=== PATIENT | female | born 1960 | race Caucasian/White ===

== ENCOUNTER 2020-12-10 14:30 | Outpatient (CLI) | payer BC, SELFPAY ==
--- NOTE | ~2020-12-10 | MM_ITS ---
EXAMINATION: MM screening deuce BI w adi HISTORY: Screening TECHNIQUE: Craniocaudal and mediolateral oblique 3-D tomosynthesis images were obtained and synthetic 2-D images were generated. CAD analysis was submitted and interpreted. COMPARISON: Comparison to multiple prior studies sequentially, with oldest reviewed study dated 10/12. BREAST PARENCHYMAL COMPOSITION: There are scattered areas of fibroglandular density. FINDINGS: Breast asymmetries are stable. There is no evidence of suspicious mass, calcification, or a rchitectural distortion to suggest malignancy in either breast. There has been no suspicious interval change. IMPRESSION: 1. No mammographic evidence of malignancy. 2. Recommend routine screening mammography in one year. BI-RADS Category 1: Negative Reviewed, dictated and finalized at location A. [employer] PAR[employer] PROFESSIONAL
== END 2020-12-10 14:31 | disposition home or self-care (01) ==
PROVIDERS: PCP Physician Assistant; Visit Provider Nurse Practitioner
DX: Z12.31 Encounter for screening mammogram for malignant neoplasm of breast (principal)
CPT/HCPCS: 77063; 77067

== ENCOUNTER 2021-12-12 08:18 | Outpatient (CLI) | payer BC, SELFPAY ==
--- NOTE | ~2021-12-12 | MM_ITS ---
EXAMINATION: MM screening deuce BI w adi HISTORY: Screening TECHNIQUE: Craniocaudal and mediolateral oblique 3-D tomosynthesis images were obtained and synthetic 2-D images were generated. CAD analysis was submitted and interpreted. COMPARISON: Comparison to multiple prior studies sequentially, with oldest reviewed study dated 10/12. BREAST PARENCHYMAL COMPOSITION: The breasts are heterogenously dense, which may obscure small masses FINDINGS: There is no evidence of suspicious mass, calcification, or architectural distortion to sugg est malignancy in either breast. There has been no suspicious interval change. IMPRESSION: 1. No mammographic evidence of malignancy. 2. Recommend routine screening mammography in one year. BI-RADS Category 1: Negative Reviewed, dictated and finalized at location A. [employer] QUALITY CONTROL MANAGER
== END 2021-12-12 08:19 | disposition home or self-care (01) ==
LOC: ANHIMG 08:20
PROVIDERS: Visit Provider Nurse Practitioner
DX: Z12.31 Encounter for screening mammogram for malignant neoplasm of breast (principal)
CPT/HCPCS: 77063; 77067

== ENCOUNTER 2022-04-20 12:53 | Outpatient (CLI) | payer BC, SELFPAY ==
--- NOTE | ~2022-04-20 | DEXA_ITS ---
Bone Density Report Name: SRIKANTH PRADO Age: 61 Sex: Female Ethnicity: White Date of : 1960 Indication: osteopenia; height loss; postmenopausal Referring Provider: RANDA, JOSÉ Study: Bone densitometry was performed. Exam Date: April 20, 2022 Accession number: [id number] Bone Density: Region BMD T-score Z-score Classification AP Spine(L1-L4) 0.752 -2.7 -1.2 Osteoporosis Femoral Neck (Left) 0.638 -1.9 -0.6 Osteopenia Total Hip (Left) 0.755 -1.5 -0.6 Osteopenia Femoral Neck (Right) 0.684 -1.5 -0.2 Osteopenia Total Hip (Right) 0.757 -1.5 -0.5 Osteopenia Total Hip Mean 0.756 -1.5 -0.6 Osteopenia World Health Organization criteria for BMD impression classify patients as: Normal (T-score at or above -1.0), Osteopenia (T-score between -1.0 and -2.5), or Osteoporosis (T-score at or below -2.5). 10-year Fracture Risk: FRAX not reported because: Some T-score for Spine Total or Hip Total or Femoral Neck at or below -2.5 Previous Exams: Region Exam Age BMD T-score BMD Change BMD Change Date g/cm2 vs Baseline vs Previous AP Spine (L1-L4) 04/20/2022 61 0.752 -2.7 -0.166 (-18.1% -0.085 (-10.2% 11/25/2018 58 0.837 -1.9 -0.080 (-8.8%) -0.080 (-8.8%) 10/28/2016 56 0.917 -1.2 Total Hip(Left) 04/20/2022 61 0.755 -1.5 -0.078 (-9.4%) -0.143 (-15.9% 11/25/2018 58 0.897 -0.4 0.064 (7.7%)* 0.064 (7.7%)* 10/28/2016 56 0.833 -0.9 Total Hip(Right) 04/20/2022 61 0.757 -1.5 -0.098 (-11.5% -0.127 (-14.3% 11/25/2018 58 0.884 -0.5 0.028 (3.3%)* 0.028 (3.3%)* 10/28/2016 56 0.855 -0.7 *Denotes significance at 95% confidence level, LSC for AP Spine = 0.022 g/cm2, LSC for Total Hip = 0.027 g/cm2 Clinical Information Provided by Patient: Has used the following medications: Vitamin D Patient maximum height was 62 Menopause Age: 54 Drinks caffeinated beverages Onset of menses at age 14 Number of children 2 Impression: The patient has osteoporosis, based on the Total Spine T-score. The BMD for the AP Spine (L1-L4) decreased, changing by -10.2% since the last DXA exam. The BMD for the Total Hip(Left) decreased, changing by -15.9% since the last DXA exam. The BMD for the Total Hip(Right) decreased, changing by -14.3% since the last DXA exam. Discussion: INCREASED RISK OF FRACTURE. BONE DENSITY IS UNDESIRABLY LOW AT ONE OR MORE SKELETAL SITES, CONSISTENT WITH POSTMENOPAUSAL OSTEOPOROSIS. This patient's
== END 2022-04-20 12:54 | disposition home or self-care (01) ==
PROVIDERS: PCP Nurse Practitioner Family; Visit Provider Nurse Practitioner
DX: Z13.820 Encounter for screening for osteoporosis (principal); M81.0 Age-related osteoporosis without current pathological fracture; M85.852 Other specified disorders of bone density and structure, left thigh; M85.851 Other specified disorders of bone density and structure, right thigh
CPT/HCPCS: 77080

== ENCOUNTER 2023-01-10 15:43 | Outpatient (CLI) | payer BC, SELFPAY ==
--- NOTE | ~2023-01-10 | MM_ITS ---
EXAMINATION: MM screening deuce BI w adi HISTORY: Screening mammogram TECHNIQUE: Craniocaudal and mediolateral oblique 3-D tomosynthesis images were obtained and synthetic 2-D images were generated. CAD analysis was submitted and interpreted. COMPARISON: 12/12/2021, 12/10/2020, 12/08/2019 bilateral screening mammogram examinations BREAST PARENCHYMAL COMPOSITION: The breasts are heterogeneously dense, which may obscure small masses . FINDINGS: History of prior benign right breast biopsy. Stable bilateral mammographic asymmetry since 12/08/2019 There is no evidence of suspicious mass, calcification, or architectural distortion to sugg est malignancy in either breast. There has been no suspicious interval change. IMPRESSION: 1. No mammographic evidence of malignancy. 2. Recommend routine screening mammography in one year. BI-RADS Category 2: Benign finding(s). Reviewed, dictated and finalized at location A. KET NURSE
== END 2023-01-10 15:44 | disposition home or self-care (01) ==
LOC: ANHIMG 15:44
PROVIDERS: PCP Nurse Practitioner Family; Visit Provider Nurse Practitioner
DX: Z12.31 Encounter for screening mammogram for malignant neoplasm of breast (principal)
CPT/HCPCS: 77063; 77067

== ENCOUNTER 2024-03-04 11:57 | Outpatient (CLI) | payer BC, SELFPAY ==
--- NOTE | ~2024-03-04 | XR_ITS ---
Supine and upright views of the abdomen Clinical history: Kidney stone Findings: Bowel gas pattern is nonspecific. No evidence for obstruction or free air. There is a large staghorn type calculus of the right kidney. There are probable multiple much smaller right lower regina e renal stones. No definite left renal stone seen.. Osseous structures are intact. Impression: Staghorn right renal calculus with multiple small right lower pole renal stones. Reviewed, dictated and finalized at location . Impression: Staghorn right renal calculus with multiple small right lower pole renal stones .
== END 2024-03-04 11:58 | disposition home or self-care (01) ==
PROVIDERS: PCP Nurse Practitioner Family; Visit Provider Nurse Practitioner Family
DX: N20.0 Calculus of kidney (principal); Z87.442 Personal history of urinary calculi
CPT/HCPCS: 74018

== ENCOUNTER 2024-03-17 09:46 | Outpatient (CLI) | payer BC, SELFPAY ==
--- NOTE | ~2024-03-17 | MM_ITS ---
EXAMINATION: MM screening deuce BI w adi HISTORY: Screening mammogram TECHNIQUE: Craniocaudal and mediolateral oblique 3-D tomosynthesis images were obtained and synthetic 2-D images were generated. CAD analysis was submitted and interpreted. COMPARISON: 01/10/2023, 12/12/2021 bilateral screening mammogram examinations BREAST PARENCHYMAL COMPOSITION: There are scattered areas of fibroglandular density. FINDINGS: There is no evidence of suspicious mass, calcification, or architectural distortion to sugg est malignancy in either breast. There has been no suspicious interval change. IMPRESSION: 1. No mammographic evidence of malignancy. 2. Recommend routine screening mammography in one year. BI-RADS Category 1: Negative Reviewed, dictated and finalized at location B.
== END 2024-03-17 09:47 | disposition home or self-care (01) ==
LOC: ANHIMG 09:49
PROVIDERS: PCP Nurse Practitioner Family; Visit Provider Nurse Practitioner
DX: Z12.31 Encounter for screening mammogram for malignant neoplasm of breast (principal)
CPT/HCPCS: 77063; 77067

== ENCOUNTER 2024-05-30 09:13 | Outpatient (CLI) | payer BC, SELFPAY ==
--- NOTE | ~2024-05-30 | DEXA_ITS ---
Bone Density Report Name: SRIKANTH PRADO Age: 63 Sex: Female Ethnicity: White Date of : 1960 Indication: postmenopausal; screening for osteoporosis; height loss; Referring Provider: RANDA, JOSÉ Study: Bone densitometry was performed. Exam Date: May 30, 2024 Accession number: [id number] Bone Density: Region BMD T-score Z-score Classification AP Spine(L1-L4) 0.782 -2.4 -0.8 Osteopenia Femoral Neck (Left) 0.673 -1.6 -0.2 Osteopenia Total Hip (Left) 0.794 -1.2 -0.1 Osteopenia Femoral Neck (Right) 0.663 -1.7 -0.3 Osteopenia Total Hip (Right) 0.790 -1.2 -0.2 Osteopenia Total Hip Mean 0.792 -1.2 -0.2 Osteopenia World Health Organization criteria for BMD impression classify patients as: Normal (T-score at or above -1.0), Osteopenia (T-score between -1.0 and -2.5), or Osteoporosis (T-score at or below -2.5). 10-year Fracture Risk: FRAX not reported because: Treated for osteoporosis Clinical Information Provided by Patient: Is being treated for osteoporosis Has used the following medications: Boniva (i.e. ibandronate) Patient maximum height was 62 Menopause Age: 54 Drinks caffeinated beverages Onset of menses at age 13 Number of children 2 Impression: The patient has low bone mass, based on the Total Spine T-score. Discussion: It is important to ask patients whether they are taking their medications and to encourage continued and appropriate compliance with their osteoporosis therapies to reduce fracture risk. It is also important to review their risk factors and encourage appropriate calcium and vitamin D intakes, exercise, fall prevention and other lifestyle measures. Follow-Up: Consider a repeat BMD and Vertebral Fracture Assessment (VFA) exam in 2 years or sooner if medically necessary, to reassess this patient's status. Reported by: STEPHEN on 05/30/2024 9:43:00 AM. Reviewed, dictated and finalized at location [facility] [place]
== END 2024-05-30 09:14 | disposition home or self-care (01) ==
LOC: ANHIMG 09:14
PROVIDERS: PCP Nurse Practitioner Family; Visit Provider Nurse Practitioner
DX: M81.0 Age-related osteoporosis without current pathological fracture (principal); M85.89 Other specified disorders of bone density and structure, multiple sites
CPT/HCPCS: 77080

== ENCOUNTER 2025-02-19 15:23 | Emergency (ER) | payer BC, SELFPAY ==
--- NOTE | 2025-02-19 15:24 | ED.FEMALEGU ---
HPI - Female Genitourinary General Chief complaint: Upper Respiratory Infection Stated complaint: nauseated,urine ordor Time Seen by Provider: 02/19/25 15:24 Source: patient Mode of arrival: ambulatory Limitations: no limitations History of Present Illness HPI Narrative: Luciana is a 64-year-old female patient presenting to the clinic today with complaints of nausea, runny nose, and a foul urine smell. States the runny nose started on Sunday and she has become more and more nauseated. Denies any abdominal pain. Denies any urinary symptoms however she does get urinary tract infections frequently. She denies any concern for any sexually transmitted infections and she denies any other urinary symptoms. Denies any fever, chills, or body aches. Denies any chest pain or shortness of breath Related Data Allergies Allergy/AdvReac Type Severity Reaction Status Date / Time Sulfa (Sulfonamide Allergy Unknown unknown Verified 02/19/25 15:41 Antibiotics) Review of Systems Review of Systems: Pertinent positives per HPI. Patient denies any fever, chills, rash, headache, visual changes, dizziness, cough, shortness of breath, chest pain, palpitations, vomiting, diarrhea, constipation, abdominal pain PMFSH Past Medical History Medical History Allergies Family History Family History Father Lung cancer Mother Lung cancer Social History Social History Smoking status: Never smoker Alcohol intake: never Substance use: never Comments At the time of my signature, I reviewed and agree with the nursing past medical, surgical, social, and family history. There is no relevant family history pertinent to the patient complaint. Exam Narrative: General: Well-developed, well nourished, in no apparent distress Head: Normocephalic, atraumatic Eyes: Pupils equally round and reactive to light bilaterally, EOM intact, sclera and conjunctive clear, no discharge, lids normal Ears: TMs intact and clear, ear canals clear, no drainage, grossly hearing normal. Nose: Nares patent, clear nasal discharge, no inflammation, no sinus tenderness. Mouth: Oral pharynx without lesions or masses, good dentition, MMM. Postnasal drip Neck: Supple, trachea midline, no enlargement of anterior or posterior cervical nodes, no thyroid masses or goiter palpable. Cardio: Regular rate and rhythm, s1 and s2 normal, no murmur appreciated. Resp: Clear to auscultation bilaterally, no rhonchi, rales, wheezing or rubs Abdomen: Soft, pliable, bowel sounds present in all quadrants, non-tender to palpation, no organomegly, no CVAT tenderness. Course Course Emergency Course: Portions of this record may have been created with voice recognition software. Level of Care: Express Care Visit Vital Signs Vital signs: Vital Signs Temperature 36.8 C 02/19/25 15:42 Pulse Rate 91 02/19/25 15:42 Respiratory Rate 16 02/19/25 15:42 Blood Pressure 127/80 02/19/25 15:42 Pulse Oximetry 100 02/19/25 15:42 Oxygen Delivery Room Air 02/19/25 15:42 Temperature 36.8 C 02/19/25 15:42 Pulse Rate 91 02/19/25 15:42 Respiratory Rate 16 02/19/25 15:42 Blood Pressure 127/80 02/19/25 15:42 Pulse Oximetry 100 02/19/25 15:42 Oxygen Delivery Room Air 02/19/25 15:42 Vital signs reviewed MDM - Female Genitourinary MDM Narrative Medical decision making narrative: At the time of visit patient is resting comfortably on the exam table. Patient appears to be nontoxic. Labs: COVID testing was negative. Urine dip was performed is positive for leukocytes, nitrites, blood, and protein. We will send urine for culture Plan: I suspect patient has acute UTI with associated nausea. Prescription for Zofran and Augmentin was sent to the pharmacy. Supportive measures were discussed with the patient and they voiced understanding discharge instructions and agrees to treatment plan. Return precautions reviewed Differential Diagnosis Differential diagnosis: Likely urinary tract infection and cystitis Lab Data Labs: Lab Results 02/19/25 02/19/25 Range/Units 15:57 16:02 POC Urine Color Yellow POC Urine Clarity Cloudy POC Urine pH 7.5 POC Ur Specif [place] 1.000 POC Urine Protein 4+ (Negative) POC Ur Glucose (UA) Negative (Negative) POC Urine Ketones Negative (Negative) POC Urine Blood Trace (Negative) POC Urine Nitrite Positive (Negative) POC Urine Bilirubin 2+ (Negative) POC Urine Urobilinogen 0.2 POC U Leukocyte Esteras 2+ (Negative) POC SARS CoV-2 Ag Negative (Negative) Discharge Plan Discharge Clinical Impression: Nausea Allergic rhinitis Qualifiers: Allergic rhinitis trigger: unspecified Allergic rhinitis seasonality: unspecified Qualified Code(s): J30.9 - Allergic rhinitis, unspecified Urinary tract infection Qualifiers: Urinary tract infection type: acute cystitis Hematuria presence: with hematuria Qualified Code(s): N30.01 - Acute cystitis with hematuria Patient Disposition: Home Condition: Stable Instructions: Antibiotic Form, Urinary Tract Infection in Women (ED), Allergies (ED) Additional Instructions: Take medications as prescribed-Zofran and Augmentin May take Flonase and [id number] antihistamines for nasal congestion Increase fluids and stay well hydrated Wipe front to back. May use wet wipes. Avoid tub baths If sexually active- pee before and after intercourse. Wear cotton panties Avoid tight clothing up against the genitals Follow up with your PCP in 1 week if symptoms persist. Patient Language: Guyanese Prescriptions: New ondansetron 4 mg tablet,disintegrating 4 mg PO Q6H PRN (Reason: nausea and vomiting) 3 Days Qty: 12 0RF amoxicillin-pot clavulanate 875-125 mg tablet 1 tablet PO Q12H 7 Days Qty: 14 0RF Follow-up/Referrals: Bita,Donna Smith CORKING MACHINE OPERATOR [Primary Care Provider] - Time of Disposition: 16:03 Quality NIHSS Nursing Documentation ED NIHSS nursing documentation: reviewed/agree
[2025-02-19 15:42] VITALS: BP 127/80; PULSE 91; RESP 16; TEMP 36.8; O2SAT 100
[2025-02-19 16:00] LABS: EDCOVIDSCREEN Negative (Negative)
[2025-02-19 16:06] LABS: EDUAAPPEAR Cloudy; EDUABILI 2+ (Negative); EDUABLOOD Trace (Negative); EDUACOLOR1 Yellow; EDUAGLUCOSE Negative (Negative); EDUAKETONE Negative (Negative); EDUALEUKO 2+ (Negative); EDUANITRATE Positive (Negative); EDUAPH 7.5; EDUAPROTEIN 4+ (Negative); EDUAUROBILI 0.2
== END 2025-02-19 16:10 | disposition home or self-care (01) ==
PROVIDERS: Emergency Provider Nurse Practitioner Family; PCP Nurse Practitioner Family
DX: R11.0 Nausea (principal); J06.9 Acute upper respiratory infection, unspecified; N30.01 Acute cystitis with hematuria; Z20.822 Contact with and (suspected) exposure to COVID-19
CPT/HCPCS: 81003; 87086; 87426; 99213; G0463

== ENCOUNTER 2025-03-20 08:44 | Outpatient (CLI) | payer BC, SELFPAY ==
--- NOTE | ~2025-03-20 | MM_ITS ---
EXAMINATION: MM screening deuce BI w adi HISTORY: Screening TECHNIQUE: Craniocaudal and mediolateral oblique 3-D tomosynthesis images were obtained and synthetic 2-D images were generated. CAD analysis was submitted and interpreted. COMPARISON: Comparison to multiple prior studies sequentially, with oldest reviewed study dated 12/08. BREAST PARENCHYMAL COMPOSITION: Not dense: There are scattered areas of fibroglandular density. FINDINGS: There is no evidence of suspicious mass, calcification, or architectural distortion to sugg est malignancy in either breast. There has been no suspicious interval change. IMPRESSION: 1. No mammographic evidence of malignancy. 2. Recommend routine screening mammography in one year. BI-RADS Category 1: Negative Reviewed, dictated and finalized at location A.
--- OUTSIDE RECORDS SUMMARY | 2025-03-20 08:50 | XMS_ITS | Data Portability ---
Author Organization [facility] [place], Main Office Address [address] [place] [address] Assessment No assessment recorded. Plan of Treatment Reminders Order Date Submit Date Provider Last Modified By Organization Details Last Modified Time Details Appointments None recorded. Lab urinalysis, dipstick 2024 025 [facility] [address], [place], [address], 11:22:33 CBC w/ auto diff 2024 025 [facility] On [facility] Orders, [address] [place], [address], 5 17:42:58 lipid panel, serum 2024 025 [facility] Orders, [address] [place], [address], 5 17:42:58 vitamin D, 1,25-dihydr oxy, serum 2024 025 [facility] On [facility] Orders, [address] [place], [address], 5 17:42:58 TSH + free T4, serum 2024 025 [facility] Add On Lab Orders, [address] [place], [address], 5 08:45:46 HbA1c (hemoglobin A1c), blood 2024 025 [facility] Add On Lab Orders, [address] [place], [address], 5 08:45:47 CMP, serum or plasma 2024 025 [facility] On Lab Orders, [address] [place], [address], 5 08:45:47 CBC 2023 024 [email or web address] 4 [facility], [address] [place], [address], 4 13:29:50 BMP, serum or plasma 2023 024 [email or web address] 4 [facility], [address] [place], [address], 4 13:30:07 HbA1c (hemoglobin A1c), blood 2023 024 [email or web address] 4 [facility], [address] [place], [address], 4 13:29:30 Referral gastroenter ologist referral - pt prefers to stay local. Please call patient to schedule an appointment . Thank you. 2023 024 [email or web address] Ailyn Leiva MD, [address] [facility], [address], [place], [address], 4 08:45:23 urologist referral - Please call patient to schedule an appointment . 2023 024 [email or web address] Not available 09:10:05 Procedures None recorded. Surgeries None recorded. Imaging electromyog james + nerve conduction study - Close order 2023 [email or web address] [place] [address] (Cardiology & Emg), [address] [place] [address] [address], [address], 4 09:09:33 Medication Orders diclofenac sodium 75 mg tablet,rosa yed release 2023 024 [email or web address] [place] [address], [address], [place], [address], 10:12:29 Sudafed 30 mg tablet 2023 024 [email or web address] [place] [address], [address], [place], [address], 5 10:13:44 Patient TargetsNo targets recorded. Patient InstructionsNo instructions recorded. Reason for Referral Urologist Referral for Recur rent kidney stone Please call patient to schedule an appointment. Referring Physician: Ty Del Toro [facility], Encounter Date: 01/16/2024 [employer] C[employer]rer Referral for Gastroesophageal reflux disease EGD, GERD treatment pt prefers to stay local. Please call patient to schedule an appointment. Thank you. Referring Physician: Ty Del Toro [facility], Encounter Date: 07/29/2024 Results Created Date Observation Date Name Description Value Unit Range Abnormal Flag Note LastModifiedBy Organization Detail LastModifiedTime 03/07/2003/08/2022 HEMOG LOBIN A1C HA1C 5.6 % 4.0-6. 0 Diabe prince Scree mushtaq Crite mary: <5.7% Consi stent with absen ce of diabe prince 5.7-6 .4% Consi stent with incre ased risk for diabe prince (pred iabet es) >OR=6 .5% Consi stent with diabe prince REFER ENCE: Diabe prince Care 2016, 39(Lara ppl.1 ):s13 -s22 Not Available [facility] (Lab) [address] [place], [address], 03/08/2022 12:00:13 03/07/20 22 03/07/2022 FOLAT E, SERUM /PLAS MA folate 14.2 NG/mL 2.76-2 0.0 Not Available [facility] (Lab) [address] [place], [address], 03/08/2022 00:10:32 03/07/20 22 03/07/2022 VITAM IN B12 (DEREK DANETTE ) vb12 420 pg/mL 239-93 1 Not Available [facility] (Lab) [address] [place], [address], 03/08/2022 00:10:30 03/07/20 22 03/07/2022 VITAM IN D 25-HY DROXY vd25oh 25.8 NG/mL 30-100 low Vitam in D Statu s: Defic ient: <20 ng/mL Insuf ficie nt: 20-29 ng/mL Suffi cient : 30-10 0 ng/mL Not Available [facility] (Lab) [address] [place], [address], 03/07/2022 23:23:53 03/07/20 22 03/07/2022 TSH thyroid-stim ulating hormone 1.110 uIU/m L 0.465- 4.680 Not Available [facility] (Lab) [address] [place], [address], 03/07/2022 22:15:28 03/07/20 22 03/07/2022 COMPR EHENS EDWIN METAB OLIC PANEL carbon dioxide 26 mmol/ L 22-30 Not Available [facility] (Lab) [address] [place], [address], 03/07/2022 21:46:58 03/07/20 22 03/07/2022 COMPR EHENS EDWIN METAB OLIC PANEL sodium 137 mmol/ L 137-14 5 Not Available [facility] (Lab) [address] [place], [address], 03/07/2022 21:46:58 03/07/20 22 03/07/2022 COMPR EHENS EDWIN METAB OLIC PANEL potassium 4.6 mmol/ L 3.5-5. 1 Not Available [facility] (Lab) [address] [place], [address], 03/07/2022 21:46:58 03/07/20 22 03/07/2022 COMPR EHENS EDWIN METAB OLIC PANEL chloride 104 mmol/ L 98-107 Not Available [facility] (Lab) [address] [place], [address], 03/07/2022 21:46:58 03/07/20 22 03/07/2022 COMPR EHENS EDWIN METAB OLIC PANEL anion gap 11.6 mmol/ L 14-22 low Not Available [facility] (Lab) [address] [place], [address], 03/07/2022 21:46:58 03/07/20 22 03/07/2022 COMPR EHENS EDWIN METAB OLIC PANEL glucose 82 mg/dL 70-99 Not Available [facility] (Lab) [address] [place], [address], 03/07/2022 21:46:58 03/07/20 22 03/07/2022 COMPR EHENS EDWIN METAB OLIC PANEL BUN 16 mg/dL 8-19 Not Available [facility] (Lab) [address] [place], [address], 03/07/2022 21:46:58 03/07/20 22 03/07/2022 COMPR EHENS EDWIN METAB OLIC PANEL creatinine 0.66 mg/dL 0.66-1 .25 Not Available [facility] (Lab) [address] [place], [address], 03/07/2022 21:46:58 03/07/20 22 03/07/2022 COMPR EHENS EDWIN METAB OLIC PANEL aspartate aminotransfe rase 22 U/L 15-37 Not Available [facility] (Lab) [address] [place], [address], 03/07/2022 21:46:58 03/07/20 22 03/07/2022 COMPR EHENS EDWIN METAB OLIC PANEL GFR >60 Refer ence Range : [place] ge GFR Healt hy Adult : >60 mL/mi n/1.7 3 m2 Chron ic Kidne y Disea se: 15-60 mL/mi n/1.7 3 m2 Kidne y Failu re: <15/m L/min /1.73 m2 www.n iddk. nih.g ov The MDRD study equat ion has not been valid ated in child donnie <18 years of age; pregn ant women ; the elder ly >85 years of age; or in some racia l or ethni c subgr oups, such as Hispa nics. Outsi de the valid ated benja eters , estim ated GFR is less accur ate, requi ring clini jennifer judgm ent on a case- by-ca se basis . Clini jennifer inter preta tion for other races and ages must be made by the clini afshin. The MDRD study equat ion has not been valid ated for the evalu ation of serum creat inine relat ed to nutri nelly l statu s or medic ation usage . For perso ns <18 years of age, a pedia tric GFR calcu lator is avail able on the [facility] websi te: https ://cezar w.kid ash.o rg/pr ofess ional s/kdo qi/gf r_cal culat or Not Available [facility] (Lab) [address] [place], [address], 03/07/2022 21:46:58 03/07/20 22 03/07/2022 COMPR EHENS EDWIN METAB OLIC PANEL alkaline phosphatase 110 U/L 38-126 Not Available [facility] (Lab) [address] [place], [address], 03/07/2022 21:46:58 03/07/20 22 03/07/2022 COMPR EHENS EDWIN METAB OLIC PANEL alanine aminotransfe rase 13 U/L 0-35 Not Available [facility] (Lab) [address] [place], [address], 03/07/2022 21:46:58 03/07/20 22 03/07/2022 COMPR EHENS EDWIN METAB OLIC PANEL bilirubin, total 0.30 mg/dL 0.20-1 .30 Not Available [facility] (Lab) [address] [place], [address], 03/07/2022 21:46:58 03/07/20 22 03/07/2022 COMPR EHENS EDWIN METAB OLIC PANEL calcium 9.4 mg/dL 8.4-10 .2 Not Available [facility] (Lab) [address] [place], [address], 03/07/2022 21:46:58 03/07/20 22 03/07/2022 COMPR EHENS EDWIN METAB OLIC PANEL total protein 8.1 g/dL 6.3-8. 2 Not Available [facility] (Lab) [address] [place], [address], 03/07/2022 21:46:58 03/07/20 22 03/07/2022 COMPR EHENS EDWIN METAB OLIC PANEL albumin 4.1 g/dL 3.4-5. 0 Not Available [facility] (Lab) [address] [place], [address], 03/07/2022 21:46:58 03/07/20 22 03/07/2022 COMPR EHENS EDWIN METAB OLIC PANEL globulin 4.0 g/dL 2.6-4. 2 Not Available [facility] (Lab) [address] [place], [address], 03/07/2022 21:46:58 03/07/20 22 03/07/2022 COMPR EHENS EDWIN METAB OLIC PANEL A/G ratio 1.0 ratio 1.0-2. 0 Not Available [facility] (Lab) [address] [place], [address], 03/07/2022 21:46:58 03/07/20 22 03/07/2022 LIPID PANEL LDL cholesterol, calculated 128 mg/dL 0-130 NIH JEWEL NSUS REPOR T RECOM MENDA TIONS FOR LDL: ADULT CHILD LOW RISK <130 <110 (OPTI MAL LDL) <100 ----- BORDE RLINE : 130-1 59 ----- HIGH RISK: >160 >130 A TRIGL YCERI DE RESUL T >400 INVAL IDATE S THE CALCU LATIO N FOR LDL FRACT IONAT ION - THE LDL RESUL T WILL NOT BE REPOR TASNEEM. Not Available [facility] (Lab) [address] [place], [address], 03/07/2022 21:46:46 03/07/20 22 03/07/2022 LIPID PANEL cholesterol 211 mg/dL 140-19 9 high NIH JEWEL NSUS RECOM MENDA TION FOR LINNEA STERO L: ADULT CHILD LOW RISK: <200 <170 BORDE RLINE : <200- 239 ----- HIGH RISK: >240 >200 Not Available [facility] (Lab) [address] [place], [address], 03/07/2022 21:46:46 03/07/20 22 03/07/2022 LIPID PANEL triglyceride s 139 mg/dL 0-150 NIH JEWEL NSUS REPOR T RECOM MENDA TION FOR TRIGL YCERI ANGELICA: ADULT CHILD LOW RISK: <150 ----- BODER LINE: 150-1 99 ----- HIGH RISK: >200 ----- Not Available [facility] (Lab) [address] [place], [address], 03/07/2022 21:46:46 03/07/20 22 03/07/2022 LIPID PANEL HDL cholesterol 55 mg/dL 40- Not Available [facility] (Lab) [address] [place], [address], 03/07/2022 21:46:46 03/07/20 22 03/07/2022 URINA LYSIS COMPL ETE, IRIS pH 6.5 pH_un its 5.0-9. 0 Not Available [facility] (Lab) [address] [place], [address], 03/07/2022 21:39:02 03/07/20 22 03/07/2022 URINA LYSIS COMPL ETE, IRIS color yellow Not Available [facility] (Lab) [address] [place], [address], 03/07/2022 21:39:02 03/07/20 22 03/07/2022 URINA LYSIS COMPL ETE, IRIS appear extra turbid abnormal Not Available [facility] (Lab) [address] [facility] [place], [address], 03/07/2022 21:39:02 03/07/20 22 03/07/2022 URINA LYSIS COMPL ETE, IRIS specific gravity 1.013 1.001- 1.030 Not Available [facility] (Lab) [address] [place], [address], 03/07/2022 21:39:02 03/07/20 22 03/07/2022 URINA LYSIS COMPL ETE, IRIS leukocytes >/=500 sid/u L negati ve- abnormal Not Available [facility] (Lab) [address] [place], [address], 03/07/2022 21:39:02 03/07/20 22 03/07/2022 URINA LYSIS COMPL ETE, IRIS nitrite negati ve negati ve- Not Available [facility] (Lab) [address] [place], [address], 03/07/2022 21:39:02 03/07/20 22 03/07/2022 URINA LYSIS COMPL ETE, IRIS protein 200 mg/dL negati ve- abnormal Not Available [facility] (Lab) [address] [place], [address], 03/07/2022 21:39:02 03/07/20 22 03/07/2022 URINA LYSIS COMPL ETE, IRIS glucose normal mg/dL normal - Not Available [facility] (Lab) [address] [place], [address], 03/07/2022 21:39:02 03/07/20 22 03/07/2022 URINA LYSIS COMPL ETE, IRIS ketones negati ve mg/dL negati ve- Not Available [facility] (Lab) [address] [place], [address], 03/07/2022 21:39:02 03/07/20 22 03/07/2022 URINA LYSIS COMPL ETE, IRIS urobilinogen normal mg/dL normal - Not Available [facility] (Lab) [address] [place], [address], 03/07/2022 21:39:02 03/07/20 22 03/07/2022 URINA LYSIS COMPL ETE, IRIS bilirubin negati ve mg/dL negati ve- Not Available [facility] (Lab) [address] [place], [address], 03/07/2022 21:39:02 03/07/20 22 03/07/2022 URINA LYSIS COMPL ETE, IRIS blood 0.5 mg/dL negati ve- abnormal Not Available [facility] (Lab) [address] [place], [address], 03/07/2022 21:39:02 03/07/20 22 03/07/2022 URINA LYSIS COMPL ETE, IRIS white blood cells packed /i??h pfi?? 0-8 abnormal Not Available [facility] (Lab) [address] [place], [address], 03/07/2022 21:39:02 03/07/20 22 03/07/2022 URINA LYSIS COMPL ETE, IRIS white blood cell clumps packed field /i??h pfi?? none seen- abnormal Not Available [facility] (Lab) [address] [place], [address], 03/07/2022 21:39:02 03/07/20 22 03/07/2022 URINA LYSIS COMPL ETE, IRIS red blood cells none /i??h pfi?? 0-4 Not Available [facility] (Lab) [address] [place], [address], 03/07/2022 21:39:02 03/07/20 22 03/07/2022 URINA LYSIS COMPL ETE, IRIS bacteria none Not Available [facility] (Lab) [address] [place], [address], 03/07/2022 21:39:02 03/07/20 22 03/07/2022 URINA LYSIS COMPL ETE, IRIS mucous few /i??l pfi?? abnormal Not Available [facility] (Lab) [address] [place], [address], 03/07/2022 21:39:02 03/07/20 22 03/07/2022 URINA LYSIS COMPL ETE, IRIS squamous epithelial packed field /i??l pfi?? abnormal Not Available [facility] (Lab) [address] [place], [address], 03/07/2022 21:39:02 03/07/20 22 03/07/2022 CBC W/O DIFFE RENTI AL mean red cell volume 85.3 fL 82.0-9 9.0 Not Available [facility] (Lab) [address] [place], [address], 03/07/2022 21:37:46 03/07/20 22 03/07/2022 CBC W/O DIFFE RENTI AL white blood cells 6.5 x10'3 /uL 4.2-10 .8 Not Available [facility] (Lab) [address] [place], [address], 03/07/2022 21:37:46 03/07/20 22 03/07/2022 CBC W/O DIFFE RENTI AL red blood cells 4.36 x10'6 /uL 3.80-5 .20 Not Available [facility] (Lab) [address] [place], [address], 03/07/2022 21:37:46 03/07/20 22 03/07/2022 CBC W/O DIFFE RENTI AL hemoglobin 11.5 g/dL 12.0-1 5.6 low Not Available [facility] (Lab) [address] [place], [address], 03/07/2022 21:37:46 03/07/20 22 03/07/2022 CBC W/O DIFFE RENTI AL hematocrit 37.2 % 35.7-4 5.7 Not Available [facility] (Lab) [address] [place], [address], 03/07/2022 21:37:46 03/07/20 22 03/07/2022 CBC W/O DIFFE RENTI AL mean red cell hemoglobin 26.4 pg 27.0-3 3.0 low Not Available [facility] (Lab) [address] [place], [address], 03/07/2022 21:37:46 03/07/20 22 03/07/2022 CBC W/O DIFFE RENTI AL mean RBC HGB concentratio n 30.9 g/dL 31.0-3 6.0 low Not Available [facility] (Lab) [address] [place], [address], 03/07/2022 21:37:46 03/07/20 22 03/07/2022 CBC W/O DIFFE RENTI AL red cell distribution width 14.7 % 11.8-1 5.5 Not Available [facility] (Lab) [address] [place], [address], 03/07/2022 21:37:46 03/07/20 22 03/07/2022 CBC W/O DIFFE RENTI AL platelets 435 x10'3 /uL 150-40 0 high Not Available [facility] (Lab) [address] [place], [address], 03/07/2022 21:37:46 03/07/20 22 03/07/2022 CBC W/O DIFFE JYOTI AL mean platelet volume 10.0 fL 9.0-12 .4 Not Available [facility] (Lab) [address] [place], [address], 03/07/2022 21:37:46 03/07/20 22 03/07/2022 URINA LYSIS COMPL ETE, IRIS color yellow Not Available [facility] (Lab) [address] [place], [address], 03/07/2022 21:38:58 03/07/20 22 03/07/2022 URINA LYSIS COMPL ETE, IRIS appear extra turbid abnormal Not Available [facility] (Lab) [address] [place], [address], 03/07/2022 21:38:58 03/07/20 22 03/07/2022 URINA LYSIS COMPL ETE, IRIS specific gravity 1.013 1.001- 1.030 Not Available [facility] (Lab) [address] [place], [address], 03/07/2022 21:38:58 03/07/20 22 03/07/2022 URINA LYSIS COMPL ETE, IRIS pH 6.5 pH_un its 5.0-9. 0 Not Available [facility] (Lab) [address] [place], [address], 03/07/2022 21:38:58 03/07/20 22 03/07/2022 URINA LYSIS COMPL ETE, IRIS leukocytes >/=500 sid/u L negati ve- abnormal Not Available [facility] (Lab) [address] [place], [address], 03/07/2022 21:38:58 03/07/20 22 03/07/2022 URINA LYSIS COMPL ETE, IRIS nitrite negati ve negati ve- Not Available [facility] (Lab) [address] [place], [address], 03/07/2022 21:38:58 03/07/20 22 03/07/2022 URINA LYSIS COMPL ETE, IRIS protein 200 mg/dL negati ve- abnormal Not Available [facility] (Lab) [address] [place], [address], 03/07/2022 21:38:58 03/07/20 22 03/07/2022 URINA LYSIS COMPL ETE, IRIS glucose normal mg/dL normal - Not Available [facility] (Lab) [address] [place], [address], 03/07/2022 21:38:58 03/07/20 22 03/07/2022 URINA LYSIS COMPL ETE, IRIS ketones negati ve mg/dL negati ve- Not Available [facility] (Lab) [address] [place], [address], 03/07/2022 21:38:58 03/07/20 22 03/07/2022 URINA LYSIS COMPL ETE, IRIS urobilinogen normal mg/dL normal - Not Available [facility] (Lab) [address] [place], [address], 03/07/2022 21:38:58 03/07/20 22 03/07/2022 URINA LYSIS COMPL ETE, IRIS bilirubin negati ve mg/dL negati ve- Not Available [facility] (Lab) [address] [place], [address], 03/07/2022 21:38:58 03/07/20 22 03/07/2022 URINA LYSIS COMPL ETE, IRIS blood 0.5 mg/dL negati ve- abnormal Not Available [facility] (Lab) [address] [place], [address], 03/07/2022 21:38:58 03/11/2003/11/2025 urina lysis , dipst ick Leukocytes (reference range: negative sid/ l) Large Not Available s_gm g [address], [place], [address], 03/11/2025 10:26:34 03/11/20 25 03/11/2025 urina lysis , dipst ick Nitrite (reference rage: negative mg/dl) negati ve Not Available s_gm[address], [place], [address], 03/11/2025 10:26:34 03/11/20 25 03/11/2025 urina lysis , dipst ick Urobilinogen (reference range: 0.2-1 mg/dl) 0.2 Not Available s_gm [facility] [address], [place], [address], 03/11/2025 10:26:34 03/11/20 25 03/11/2025 urina lysis , dipst ick Protein (reference range: negative mg/dl) Large Not Available s_gm [facility] [address], [place], [address], 03/11/2025 10:26:34 03/11/20 25 03/11/2025 urina lysis , dipst ick pH (reference range: 5-7) 7.0 Not Available s_ gm[address], [place], [address], 03/11/2025 10:26:34 03/11/20 25 03/11/2025 urina lysis , dipst ick Blood (reference range: negative Jovany/ l) Large Not Available [facility] [address], [place], [address], 03/11/2025 10:26:34 03/11/20 25 03/11/2025 urina lysis , dipst ick Specific [place] (reference range: 1.005-1.030) 1.030 Not Available [address], [place], [address], 03/11/2025 10:26:34 03/11/20 25 03/11/2025 urina lysis , dipst ick Ketone (reference range: negative mg/dl) Negati ve Not Available [address], [place], [address], 03/11/2025 10:26:34 03/11/20 25 03/11/2025 urina lysis , dipst ick Bilirubin (reference range: negative mg/dl) Negati ve Not Available [address], [place], [address], 03/11/2025 10:26:34 03/11/20 25 03/11/2025 urina lysis , dipst ick Glucose (reference range: negative mg/dl) Negati ve Not Available [address], [place], [address], 03/11/2025 10:26:34 03/11/20 25 03/11/2025 urina lysis , dipst ick Appearance Turbid Not Available [address], [place], [address], 03/11/2025 10:26:34 03/11/20 25 03/11/2025 urina lysis , dipst ick Color Yellow Not Available [address], [place], [address], 03/11/2025 10:26:34 04/21/20 22 04/20/2022 DEXA No observ ation record ed. [id number], [place], [address], 01/11/2023 01:00:48 03/05/20 24 03/04/2024 XR, kidne y + urete r + bladd er No observ ation record ed. [email or web address] [address] [facility], [place], [address], 05/06/2024 16:06:32 03/18/20 24 03/17/2024 MAMMO , scree mushtaq, digit al, bilat eral No observ ation record ed. [email or web address] [address], [place], [address], 03/19/2024 12:33:02 06/03/20 24 05/30/2024 DEXA No observ ation record ed. [email or web address] [address], [place], [address], 06/05/2024 08:54:03 Result Notes None recorded. Problems Name Problem SNOMED Code Status Onset Date Resolution Date Notes Provider Name and Address Organization Details Recorded Time Impacted cerumen in right ear 0855835593085 103 Active 2021 Not Available [facility] 3 00:59:41 Family history of diabetes mellitus 586533359 Active 2021 Not Available [facility] 3 00:59:41 Uterine prolapse 02879391 Active 2021 Not Available [facility] 3 00:59:41 Recurrent falls 752717242 Active 2021 Not Available [facility] 3 00:59:41 Recurrent kidney stone 8753421445911 102 Active 2023 MERI Dominguez [address], [address] , [facility] 4 12:42:20 Mixed anxiety and depressive disorder 373647494 Active 2023 Ty Del Toro, [employer]-C [address], [address], [place], [address] , [employer] [facility] 4 12:45:16 Neuropathy 881736740 Active 2023 BLANCO DominguezP-C [address], [address], [place], [address] , [employer] [facility] 4 12:52:45 Congestion of nasal sinus 95332688 Active 2023 BLANCO DominguezP-C [address], [address], [place], [address] , [employer] [place] [facility] 4 12:57:05 Neck pain 95026131 Active 2023 BLANCO DominguezP-C [address], [address], [place], [address] , [employer] [facility] 4 12:59:40 Low back pain 986246172 Active 2023 FIDE Dominguez-C [address], [address], [place], [address] , [employer] [facility] 4 15:29:20 Gastroesop hageal reflux disease 991720207 Active 2023 BLANCO DominguezP-C [address], [address], [place], [address] , [employer] [facility] 4 14:12:11 Dysuria 13172183 Active 2024 MERI Rodriguez [address], [address], [place], [address] , [employer] [facility] 5 10:26:23 Urinary tract infectious disease 44755370 Active 2024 MERI Rodriguez [address], [address], [place], [address] , [employer] [facility] 5 11:05:50 Fatigue 20764266 Active 2024 MERI Rodriguez [address] [facility], [address], [place], [address] , [employer] 5 14:10:00 Problem Notes None recorded. Procedures Surgical History Date Name Laterality Status Provider Name and Address Organization Details Recorded Time Most Recent Mammogram completed EMMANUEL Rodriguez [employer] 03/11/2025 10:16:38 Imaging Results Imaging Date Name Status LastModified by Organiz ation Details LastModified Time 04/20/2022 DEXA completed [id number] [address] [place] [address], [id number], 01/11/2023 01:00:48 03/04/2024 XR, kidney + ureter + bladder completed [email or web address] [address], [address], 05/06/2024 16:06:32 03/17/2024 MAMMO, screening, digital, bilateral completed [email or web address] [address], [address], 03/19/2024 12:33:02 05/30/2024 DEXA completed [email or web address] [address] [address], [address], 06/05/2024 08:54:03 Procedure Notes None recorded. Medical Equipment None Reported. Allergies Allergen ID Allergen Name Allergen Category Reaction Reaction Severity Criticality Documentation Date Start Date Code Code System Note Provider Name and Address Organization Details Recorded Time 66649 Substance with sulfonami de structure and antibacte rial mechanism of action (substanc e) medicatio n facial swelling itching Not available Not available Not available 01/11/2023 08101 8003 SNOMED Not Available [facility] 01:00:40 Medications Name Sig Start Date Stop Date Status Note LastModified by Organization Details LastModified Time ivermectin 3 mg tablet TAKE 3 TABLETS BY MOUTH ONCE A WEEK FOR 4 WEEKS 03/11 completed Not Available Not Available Not Available paroxetine 10 mg tablet TAKE 1 TABLET BY MOUTH ONCE DAILY 03/11 completed Not Available Not Available Not Available ampicillin 500 mg capsule TAKE 1 CAPSULE BY MOUTH TWICE DAILY 03/11 completed Not Available Not Available Not Available valacyclovi r 500 mg tablet TAKE 1 TABLET BY MOUTH ONCE DAILY active Not Available Not Available No t Available ciprofloxac in 500 mg tablet Take 1 tablet every 12 hours by oral route for 7 days. 2024 active Not Available Not Available Not Avai lable tacrolimus 0.1 % topical ointment APPLY AT BEDTIME TO LIP 03/11 completed Not Available Not Available Not Available diclofenac sodium 75 mg tablet,rosa yed release Take 1 tablet twice a day by oral route for 90 days. 03/11 completed Not Available Not Available Not Available ergocalcife rol (vitamin D2) 1,250 mcg (50,000 unit) capsule Take 1 capsule(s ) every week by oral route for 90 days. active Not Available Not Available No t Available cefuroxime axetil 500 mg tablet Take 1 tablet every 12 hours by oral route. 2024 active Not Available Not Available Not Avai lable ondansetron 4 mg disintegrat ing tablet DISSOLVE 1 TABLET IN MOUTH EVERY 6 HOURS NEEDED FOR NAUSEA AND VOMITING FOR 3 DAYS 03/11 completed Not Available Not Available Not Available metronidazo le 0.75 % topical gel APPLY TO FACE TWICE DAILY 03/11 completed Not Available Not Available Not Available Sudafed 30 mg tablet Take 2 tablets every 4-6 hours by oral route as needed. 03/11 completed Not Available Not Available Not Available amoxicillin 875 mg-letiu m clavulanate 125 mg tablet TAKE 1 TABLET BY MOUTH EVERY 12 HOURS FOR 7 DAYS 03/11 completed Not Available Not Available Not Available ciprofloxac in 0.3 %-dexametha sone 0.1 % ear drops,suspe nsion INSTILL 4 DROPS INTO AFFECTED EAR(S) TWICE DAILY FOR 7 DAYS 03/11 completed Not Available Not Available Not Available nitrofurant oin monohydrate /macrocryst als 100 mg capsule TAKE 1 CAPSULE BY MOUTH TWICE DAILY FOR 10 DAYS 03/11 completed Not Available Not Available Not Available ibandronate 150 mg tablet TAKE 1 TABLET BY MOUTH ONCE EVERY MONTH active Not Available Not Available No t Available Vitals Date Recorded Body mass index (BMI) Body height Oxygen saturation Oxygen saturation in Arterial blood by Pulse oximetry Heart rate Body temperature Body weight Systolic blood pressure Diastolic blood pressure Provider Name and Address Organization Details Last Updated DateTime 2 20.9 kg/m2 157.48 cm 99 % 99 % 78 /min 97.9 [degF] 72199.5 3 g 100 mm[Hg] 62 mm[Hg] Not Available [facility] 3 00:59:12 Date Recorded Body mass index (BMI) Body height Oxygen saturation Oxygen saturation in Arterial blood by Pulse oximetry Heart rate Body temperature Body weight Systolic blood pressure Diastolic blood pressure Provider Name and Address Organization Details Last Updated DateTime 2 21.6 kg/m2 157.48 cm 97 % 97 % 72 /min 97.9 [degF] 95360.9 g 98 mm[Hg] 60 mm[Hg] Not Available [facility] 3 00:59:13 Date Recorded Body weight Body mass index (BMI) Body height Body temperature Heart rate Oxygen saturation Oxygen saturation in Arterial blood by Pulse oximetry Systolic blood pressure Diastolic blood pressure Provider Name and Address Organization Details Last Updated DateTime 4 93922.1 2 g 21 kg/m2 157.48 cm 98.1 [degF] 74 /min 100 % 100 % 122 mm[Hg] 86 mm[Hg] Becky Hurtado RN [facility] 4 12:30:04 Date Recorded Body height Body mass index (BMI) Body weight Body temperature Heart rate Oxygen saturation Oxygen saturation in Arterial blood by Pulse oximetry Systolic blood pressure Diastolic blood pressure Provider Name and Address Organization Details Last Updated DateTime 4 157.48 cm 21.4 kg/m2 88860.3 1 g 99 [degF] 74 /min 99 % 99 % 106 mm[Hg] 68 mm[Hg] ARIANA Ram [facility] 4 14:04:31 Date Recorded Body height Body mass index (BMI) Body weight Body temperature Heart rate Oxygen saturation Oxygen saturation in Arterial blood by Pulse oximetry Systolic blood pressure Diastolic blood pressure Provider Name and Address Organization Details Last Updated DateTime 5 157.48 cm 20.5 kg/m2 86344.3 5 g 98.6 [degF] 70 /min 97 % 97 % 104 mm[Hg] 70 mm[Hg] EMMANUEL Rodriguez [place] - [facility] 5 10:20:06 Social History Question Answer Notes LastModified by Organizat ion Details LastModified Time Tobacco Smoking Status Never Smoker Not Available [facility] 01/11/2023 00:58:24 Do You Have An Advance Directive? No MIGRATION.25845 94989 Information not available 01/11/2023 What Is Your Level Of Alcohol Consumption? None MIGRATION.71188 55780 Information not available 01/11/2023 Do You Wear A Helmet When Biking? No MIGRATION.68405 41279 Information not available 01/11/2023 What Is Your Level Of Caffeine Consumption? Moderate MIGRATION.63784 49421 Information not available 01/11/2023 In The 14 Days Before Symptom Onset, Have You Had Close Contact With A Laboratory-confir med COVID-19 While That Case Was Ill? No MIGRATION.18650 85879 Information not available 01/11/2023 In The 14 Days Before Symptom Onset, Have You Had Close Contact With A Person Who Is Under Investigation For COVID-19 While That Person Was Ill? No MIGRATION.25797 50945 Information not available 01/11/2023 Are You Currently Employed? No Information not available 03/11/2025 What Type Of Diet Are You Following? REGULAR MIGRATION.02257 59236 Information not available 01/11/2023 What Is The Highest Grade Or Level Of School You Have Completed Or The Highest Degree You Have Received? [id number] MIGRATION.11384 61559 Information not available 01/11/2023 Have There Been Any Changes To Your Family Or Social Situation? No MIGRATION.35840 00548 Information not available 01/11/2023 What Is The Fluoride Status Of Your Home? Unknown MIGRATION.57814 86678 Information not available 01/11/2023 Are There Any Guns Present In Your Home? No MIGRATION.92372 04142 Information not available 01/11/2023 Do You Use Insect Repellent Routinely? Yes MIGRATION.59691 74172 Information not available 01/11/2023 Where Do You Live? [place] MIGRATION.27417 72982 Information not available 01/11/2023 Do You Have A Medical Power Of Rn Rehab? No MIGRATION.39133 74472 Information not available 01/11/2023 What Was The Date Of Your Most Recent Tobacco Screening? 03/11/2025 Information not available 03/11/2025 Do You Have Any Pets? Yes MIGRATION.82466 79890 Information not available 01/11/2023 What Is Your Relationship Status? MIGRATION.33823 20377 Information not available 01/11/2023 Do You Use Your Seat Belt Or Car Seat Routinely? Yes MIGRATION.22354 30648 Information not available 01/11/2023 Do You Have Smoke And Carbon Monoxide Detectors In Your Home? Yes MIGRATION.36990 33028 Information not available 01/11/2023 Are You Passively Exposed To Smoke? No MIGRATION.70692 48693 Information not available 01/11/2023 Are There Any Smokers In Your House? No MIGRATION.02764 82423 Information not available 01/11/2023 Do You Feel Stressed (tense, Restless, Nervous, Or Anxious, Or Unable To Sleep At Night)? [id number] MIGRATION.76604 79946 Information not available 01/11/2023 Do You Use Any Illicit Or Recreational Drugs? No MIGRATION.32868 42194 Information not available 01/11/2023 Do You Use Sunscreen Routinely? Yes MIGRATION.84394 25633 Information not available 01/11/2023 Have You Recently Traveled Abroad? No MIGRATION.51583 25950 Information not available 01/11/2023 Are You Currently In School? No MIGRATION.67724 73002 Information not available 01/11/2023 Do You Have Any Dietary Restrictions? No MIGRATION.68812 02312 Information not available 01/11/2023 Sex: Unknown Functional Status Question Answer Note LastModified by Organizat ion Details LastModified Time What is your exercise level? Moderate MIGRATION.[id number] 6 Information not available 01/11/2023 Mental Status None recorded. Family History Relationship Description Onset Age of this Age Resolved Age Notes LastModified by Organization Details LastModified Time Sister Diabetes mellitus MIGRATION.916 [id number] Not available 01/11/2023 00:58:58 Father Diabetes mellitus MIGRATION.188 [id number] Not available 01/11/2023 00:58:58 Father Family history of malignant neoplasm 80 lung MIGRATION.946 [id number] Not available 01/11/2023 00:58:58 Paternal Grandfather Diabetes mellitus MIGRATION.941 [id number] Not available 01/11/2023 00:58:58 Paternal Grandfather Family history of malignant neoplasm 80 brain MIGRATION.773 [id number] Not available 01/11/2023 00:58:58 Paternal Grandmother Diabetes mellitus MIGRATION.741 [id number] Not available 01/11/2023 00:58:58 Maternal Uncle Diabetes mellitus MIGRATION.408 [id number] Not available 01/11/2023 00:58:58 Maternal Uncle Family history of malignant neoplasm bladde r MIGRATION.543 [id number] Not available 01/11/2023 00:58:58 Maternal Uncle Parkinson's disease MIGRATION.271 2924271 Not available 01/11/2023 00:58:58 Mother Family history of malignant neoplasm 80 lung cancer MIGRATION.799 [id number] Not available 01/11/2023 00:58:58 Unspecified Relation Family history of malignant neoplasm 32 cousin / breast MIGRATION.754 [id number] Not available 01/11/2023 00:58:58 Unspecified Relation Parkinson's disease cousin MIGRATION.113 [id number] Not available 01/11/2023 00:58:58 Maternal Grandfather Parkinson's disease MIGRATION.519 [id number] Not available 01/11/2023 00:58:58 Medical History Condition Response BLINDNESS N RHEUMATIC FEVER N BLADDER PROBLEMS N KIDNEY STONES N MRSA N OTHER # 1 N POLIO N LUNG DISEASE/DISORDER N HISTORY OF DRUG ABUSE N RADIATION / CHEMOTHERAPY N COPD N Other # 2 N BLOOD DISEASES N SURGERY N EAR OR HEARING PROBLEMS N MUMPS N SHINGLES N DEPRESSION (INCLUDING POST ) N FEMALE PROBLEMS / INFECTIONS N BOWEL PROBLEMS N STROKE/TIA N THYROID DISEASE N ULCERS N BENIGN PROSTATIC HYPERPLASIA N MEASLES N CERVICALGIA N HYPOTENSION N TB SKIN TEST N MYOCARDIAL INFARCTION N PARAPELGIA N OBESITY N GERD/NAUSEA N ANEURYSM N URINARY/BLADDER/KIDNEY PROBLEMS N CORONARY ARTERY DISEASE (CAD) N MENIERE'S DISEASE N ADDICTION CONCERNS N ENDOMETRIOSIS N USE OF BLOOD THINNERS N SKIN PROBLEMS N EMPHYSEMA N GASTROINTESTINAL DISORDER N MUSCLE,JOINT OR BONE PROBLEMS N GASTROINTESTINAL BLEEDING N BLOOD CLOTS N ASTHMA N CATARACTS N ERECTILE DYSFUNCTION N GI PROBLEMS N CHF N Low Testosterone N NEUROPATHY N INFERTILITY N AIDS/HIV N FRACTURES N CHEMOTHERAPY / RADIATION N VISION/EYE PROBLEMS N LIVER DISEASE N MALE HYPOGONADISM N HYPERTENSION N TOURETTE'S N ANXIETY DISORDER N BLOOD TRANSFUSION N ANEMIA/BLOOD DISORDER N CHRONIC EAR INFECTIONS N BRONCHITIS N TUBERCULOSIS N GLAUCOMA N FOOT PROBLEM N DIVERTICULITIS N CHICKENPOX N SLEEP APNEA N ALLERGIES/HAYFEVER Y INFECTIOUS DISEASE N HEART ARRHYTHMIA N PROSTATE N INSOMNIA N HIGH CHOLESTEROL / HYPERLIPIDEMIA N HYPERTHYROIDISM N EYE PROBLEMS N EATING DISORDER N EDEMA N CHRONIC PAIN SYNDROME N CONSTIPATION Y CAROTID BLOCKAGE N BACK / NECK PROBLEMS N HAVE YOU BEEN HOSPITALIZED OR SEEN IN THE MEDICAL CENTER IN THE PAST YEAR ? N ATHEROSCLEROSIS N BREAST PROBLEMS N DIALYSIS N ECZEMA N FIBROMYALGIA N OSTEOPOROSIS N ARTHRITIS N NO SIGNIFICANT PAST MEDICAL HISTORY N APPENDICITIS N DIABETES, TYPE N BAD TEETH N HEARTBURN / REFLUX N ADD/ADHD N AUTISM SPECTRUM DISORDER (ASD) N HEPATITIS / LIVER DISEASE N PULMONARY DISEASE N GOUT N SLEEP DISORDER N ALZHEIMER'S DISEASE N PAIN N HERPES N DEMENTIA N HEADACHES/MIGRAINES N SEIZURES/EPILEPSY N VASCULAR DISEASE N PACEMAKER N DIZZINESS N HEART DISEASE/HEART PROBLEMS N KIDNEY DISEASE N DEVELOPMENTAL OR BEHAVIORAL DISORDERS N MULTIPLE SCLEROSIS N SCARLET FEVER N MENTAL DISORDER/ILLNESS N CARDIAC ARRHYTHMIA N CANCER: SPECIFY N PNEUMONIA N ATRIAL FIBRILLATION N Gall Stones N PULMONARY EMBOLISM N AUTOIMMUNE DISEASE N Gynecological History Statement/Question Response How many live births 2 Abnormal Pap N If Post Menopausal, Age at Menopause 53 Date of Last Mammogram Date of Last Colonoscopy Most Recent Bone Density Date of LMP Date of Last Pap Most Recent Mammogram 03/19/2024 Breast Problems none Obstetrics History GPAL:G 2 P 2 0 0 2 Type Value Full Term 2 Living 2 Total 2 Past Encounters Encounter ID Performer Location Encounter Start Date Encounter Closed Date Diagnosis/Indication Diagnosis SNOMED-CT Code Diagnosis ICD10 Code Diagnosis Note [id number] FIDE Mnior [facility] [place] [address] [facility] [address] [place] [address] 03/07/2022 00:00:00 03/07/2022 20:41:53 [id number] FIDE Minor [facility] [place] [address] [facility] [address] [facility] [place] [address] 03/16/2022 00:00:00 03/16/2022 22:04:15 [id number] Alexandra Drake MD [facility] Primary [facility] [place] [address] [facility] [address] [place] [address] 01/16/2024 12:18:33 01/16/2024 13:29:51 Recurrent kidney stone 6799707401 146101 N20.0 -pt recently had xray noting massive kidney stone-noti ng fabiana low back pain-refer ral to urology given Family his tory of diabetes mellitus 325118602 Z83.3 -pt is concerned for diabetes-n otes large family hx-labs obtained Neuropathy 472425914 G62 .9 chronic issue for a couple yearsemg ordered Screening for disorder 614705371 Z13.9 -labs obtained Congestion of nasal sinus 70949124 R09.81 Neck pain 34309280 M54.2 [id number] MERI Dominguez [facility] Primary Care [facility] [address] [place] [address] 07/29/2024 13:58:54 07/29/2024 15:11:46 Gastroesophageal reflux disease 294686314 K21.9 has to sleep in a chair d/t gerd/paint aking omeprazole , but only takes for 2 weeks at a time, then holds off for as long as possibleca using coughencou rage tbsp baking sodagastro enterologi st referral [id number] MERI Rodriguez [facility] Primary Care [facility] [address] [facility] [address] [place] [address] 03/11/2025 09:49:31 03/11/2025 10:51:13 General examination of patient 184201165 Z00.00 Discussed medication compliance and routine follow up.Discuss ed healthy diet and routine exercise.Danna brysonwed vaccine records and made recommenda tions as needed.Enc ouraged annual eye and dental exams, as well as twice yearly dental cleanings. Will check screening labs as listed below. Dysuria 44270149 R30.0 Family his tory of diabetes mellitus 278904320 Z83.3 Will check labs as listed below. Gastroesop hageal reflux disease 267793001 K21.9 Thyroid di sorder screening 679047115 Z13.29 Will check labs as listed below. Fatigue 22202156 R53.83 Health Concerns Section Related Observation LastModified by Organization Detai ls LastModified Time None Recorded Concern Status LastModified by Organization Details LastModified Time None Recorded Advance Directives Directive N: Payers Encounter Date Sequence Insurance Name Policy Number Policy Orellana Covered Member ID Orellana Member ID Guarantor Name 01/16/2024 1 [place]) [address] [id number] Delmy Valdez 07/29/2024 1 [place] [address] [id number] Delmy Monsalvey 03/11/2025 1 [place] [address] Valdez [id number] Delmy Valdez Notes Date Note Type Note Provider Name and Address Organization Details Recorded Time 01/16/2024 text/html Pt is here for l ow back pain MERI Dominguez [address], [place], [address], [facility]iu 01/17/2024 12:06:18 07/29/2024 text/html pt is here for gerd MERI Dominguez [address], [place], [address], uiu 07/29/2024 14:22:48 03/11/2025 text/html Patient is a 64 year old female that presents to the office for annual wellness. Patient reports she is doing well overall. Patient reports ticking in right ear for awhile, use to see ENT but he retired. Patient reports UTI symptoms, recently finished antibiotics to UTI and symptoms did not fully improve. Patient reports chronic fatigue. labs- orderedWWE- UTDMammogram- scheduledColonosco py- UTD (due 2028)DEXA- UTD (05/2024)Flu- declinesCovid- UTD, initialTdap- awareShingles- declinesPneumonia- declines MERI Rodriguez [address], [place], [address], uiu 03/11/2025 14:12:11 OBGyn Episode No OBEpisode recorded.
--- OUTSIDE RECORDS SUMMARY | 2025-03-20 08:50 | XMS_ITS | Clinical Summary ---
Author Organization [facility] Address [address] [place] [address] Care Team Providers Care Mold Preparer Name Role Phone Unavailable Primary Care Provider Unavailabl e Source Comments [facility],non-owned Affiliates and Associated Physician Practices is amultiple site organization consisting of ambulatory clinics and hospital sitesin [place], [place], [place] and [place]. This disclosure is being madepursuant to the Care Everywhere program and may not contain all information available regarding this patient. Last updated 18.[facility] Allergies Active Allergy Reactions Criticality Noted Date Comments Nitrofurantoin Vomiting 11/07/2019 Sulfa Drugs Other 2019 Severe yeast infection Medications * Be aware that medications may not be up to date on this document. Alwaysverify current medications with the patient. LINZESS 145 MCG capsule TAKE 1 CAPSULE BY MOUTH ONCE DAILY IN THE MORNING AT LEAST 30 MINUTES PRIOR TO FIRST MEAL 05/29/2019 Active MULTIPLE VITAMIN PO Active Active Problems No known active problems Family History Medical History Relation Name Comments Diabetes - Type 2 Father Diabetes - Type 2 Sister Relation Name Status Comments Father Sister Social History Tobacco Use Types Packs/Day Years Used Date Smoking Tobacco: Never Smokeless Tobacco: Never Alcohol Use Standard Drinks/Week Comments Not Currently 0 (1 standard drink = 0.6 oz pur e alcohol) Comments No Sex and Gender Information Value Date Recorded Sex Assigned at Not on file 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 [employer] Gender Identity Not on file Sexual Orientation Not on file Last Filed Vital Signs Vital Sign Reading Time Taken Comments Blood Pressure 122/80 12/23/2019 2:42 PM [employer] Pulse 75 10/23/2019 9:12 AM [employer] WORK[employer] Temperature - - Respiratory Rate - - Oxygen Saturation - - Inhaled Oxygen Concentration - - Weight 54.4 kg (120 lb) 12/23/2019 2:42 PM [employer] Height - - Body Mass Index - - Plan of Treatment Health Maintenance Due Date Last Done Comments COLOGUARD (AGES 45-75) - COL ON CA SCREENING 1961 COLON MONITORING 1961 COLONOSCOPY - COLON CA SCREENING 1961 CT COLONOGRAPHY - COLON CA SCREENING 1961 Colorectal Cancer Screening 1961 FIT - COLON CA SCREENING 1961 FLEX SIG - COLON CA SCREENING 1961 LIPID TESTING 1961 MAMMOGRAM 1961 HIV SCREENING 1976 HEPATITIS C SCREENING 10/24/1979 DTAP/TDAP/TD VACCINES (1 - Tdap) 1980 PNEUMOCOCCAL VACCINE 50+ (1 of 1 - PCV) 2011 ZOSTER VACCINE (1 of 2) 2011 COVID-19 VACCINE (1 - 2023-2 5 season) 2024 DEPRESSION SCREENING 11/12/2024 INFLUENZA VACCINE (Season Ended) 2025 Respiratory Syncytial Virus (RSV) Vaccine Pt: or over 60 yrs (1 - 1-dose 75+ series) 2036 HEPATITIS B VACCINE Aged Out No longe r eligible based on patient's age to complete this topic HIB VACCINE Aged Out No longer eligi ble based on patient's age to complete this topic HPV VACCINE Aged Out No longer eligi ble based on patient's age to complete this topic MENINGOCOCCAL (Group B) VACC INE SHARED DECISION-MAKING Aged Out No longer eligibl e based on patient's age to complete this topic MENINGOCOCCAL GROUPS A/C/Y/W VACCINE Aged Out No longer eligible b ased on patient's age to complete this topic Insurance [employer]
--- OUTSIDE RECORDS SUMMARY | 2025-03-20 08:50 | XMS_ITS | Clinical Summary ---
Author Organization [facility] Address [address] [place] [address] Care Team Providers Care Almond Sorter Name Role Phone Ty Del Toro NP Primary Care Provider [phone] Social History Tobacco Use Types Packs/Day Years Used Date Smoking Tobacco: Never Assessed Comments Unknown Sex and Gender Information Value Date Recorded Sex Assigned at Not on file Legal Sex Female 11:29 AM CDT Gender Identity Not on file Sexual Orientation Not on file Plan of Treatment Health Maintenance Due Date Last Done Comments Colorectal Cancer Screening Colonoscopy (10 Years) 1961 Annual Physical 1964 Hepatitis C 1979 DTaP, Tdap and Td Vaccines ( 1 - Tdap) 1980 Mammogram Screening 2001 Pneumococcal Vaccine: 50+ Ye ars (1 of 1 - PCV) 2011 Zoster Vaccines (1 of 2) 2011 Cervical Cancer Screening Pa p Smear (Age 30 to 64) Every 3 Years 09/21/2020 09/21/2017 Cervical Cancer Screening Pa p with HPV Testing (Age 30 to 64) Every 5 Years 09/21/2022 09/21/2017 Cervical Cancer Screening with HPV 09/21/2022 COVID-19 Vaccine (2 - 2023-2 5 season) 2024 09/07/2021 RSV Immunization or 60+ Years (1 - 1-dose 75+ series) 2036 Meningococcal B Vaccine Aged Out No l onger eligible based on patient's age to complete this topic Meningococcal Vaccine Aged Out No matt liss eligible based on patient's age to complete this topic RSV Immunizations Under 20 Months Aged Out No longer eligible based on patient's age to complete this topic Insurance [facility] Care Teams Almond Sorter Relationship Specialty Start Date End Date Ty Del Toro NP [address] [place] [address] [place] [id number] PCP - General Nurse Practitioner Family 03/18/24
--- OUTSIDE RECORDS SUMMARY | 2025-03-20 08:50 | XMS_ITS | Encounter Summary ---
Author Organization [facility] Address [address] [place] [address] Care Team Providers Care Inspection Engineer Name Role Phone Unavailable Primary Care Provider Unavailabl e Encounter Details Date Type Department Care Team (Late st Contact Info) Description 03/03/2020 Lab Requisition [facility] [address] [place] [address] Anthony Key MD [address] [place] [id number] Social History Tobacco Use Types Packs/Day Years Used Date Smoking Tobacco: Never Smokeless Tobacco: Never Alcohol Use Standard Drinks/Week Comments Not Currently 0 (1 standard drink = 0.6 oz pur e alcohol) Comments No Sex and Gender Information Value Date Recorded Sex Assigned at Not on file 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 Gender Identity Not on file Sexual Orientation Not on file documented as of this encounter Plan of Treatment Not on file documented as of this encounter Procedures Procedure Name Priority Date/Time Associated Diagnosis Comments DERMATOPATHOLOGY Routine 03/02/2020 12:0 0 AM CDT documented in this encounter Results * DERMATOPATHOLOGY (03/02/2020 12:00 AM CDT) Case Report Dermatopathology Report Case: [id number] Authorizing Provider: Anthony Key MD Collected: 03/02/2020 12:00 AM Ordering Location: [facility] Received: 03/03/2020 10:47 AM Pathologist: Courtney Brown MD Specimen: Skin, left parietal temp scalp 0 12:11 PM CDT DERMATOPATHOLOGY LABORATORY Final Diagnosis Specimen A. SKIN, left parietal temp scalp: TRICHILEMMAL (PILAR) CYST WITH CALCIFICATION (L72.12) 0 12:11 PM CDT DERMATOPATHOLOGY LABORATORY Clinical History R/O cyst, scar, neoplasm. 0 12:11 PM CDT DERMATOPATHOLOGY LABORATORY Gross Description Specimen A: Received is one formalin filled container labeled with the patient's name and designated left parietal temp scalp. The specimen consists of a punch biopsy measuring [id number], bisected. Jar 0. 0 12:11 PM CDT DERMATOPATHOLOGY LABORATORY Microscopic Description Specimen A. SKIN, left parietal temp scalp: Sections show a cyst that is lined by stratified squamous epithelium that shows trichilemmal keratinization (no granular layer). There is homogeneous pink keratin and aggregates of homogenous amorphous basophilic material consistent with calcium within the cyst. 0 12:11 PM CDT DERMATOPATHOLOGY LABORATORY Disclaimer An external and internal positive and negative controls are appropriate for the histochemical, immunohistochemical and immunofluorescence stain(s) in this case (if any), except where stated explicitly. The performance characteristics of the stain(s) cited in this report were developed and its performance characteristic determined by the Dermatopathology Laboratory at [facility], directed by Dr. Jerri Estrada. These tests need not be, and therefore are not, approved by the [place] Food and Drug Administration. The tests are used for clinical purposes. Billing Codes Specimen Charges Stain Charges 14710 1 0 12:11 PM CDT DERMATOPATHOLOGY LABORATORY Embedded Images 0 12:11 PM CDT DERMATOPATHOLOGY LABORATORY Pathology/Cytolog y TISSUE SPECIMEN FROM SKIN / Unknown 03/02/2020 03/03/2020 10:47 AM CDT us Anthony Key MD LAB - PATHOLOGY/CYTOLOGY ORD ERABLES Final Result DERMATOPATHOLOGY LABORATORY [facility] - Department of Dermatology [address], [address] Floor Lab [address] [phone] documented in this encounter Visit Diagnoses Not on filedocumented in this encounter
== END 2025-03-20 08:45 | disposition home or self-care (01) ==
LOC: ANHIMG 08:47
PROVIDERS: PCP Nurse Practitioner Family; Visit Provider Nurse Practitioner Women's Health
DX: Z12.31 Encounter for screening mammogram for malignant neoplasm of breast (principal)
CPT/HCPCS: 77063; 77067

== ENCOUNTER 2025-11-11 18:28 | Emergency (ER) | payer BC, SELFPAY ==
[2025-11-11 18:40] VITALS: BP 106/62; PULSE 73; RESP 16; TEMP 36.6; O2SAT 98
--- NOTE | 2025-11-11 18:43 | ED.FEMALEGU ---
HPI - Female Genitourinary General Chief complaint: Urogenital-Female Stated complaint: ?UTI Time Seen by Provider: 11/11/25 18:54 Source: patient and RN notes reviewed Mode of arrival: ambulatory Limitations: no limitations History of Present Illness HPI Narrative: 65-year-old female presents with concern for urinary tract infection. She reports she has chronic UTIs in takes a low dose of Macrobid every day which she has run out of. Reports her primary care doctor has left the office and she has been unable to reach her urologist. She denies fever, body aches, chills, sweats, back pain, abdominal pain, nausea, vomiting. She reports suprapubic pressure and dysuria. MD elicited complaint: UTI Related Data Allergies Allergy/AdvReac Type Severity Reaction Status Date / Time Sulfa (Sulfonamide Allergy Unknown unknown Verified 11/11/25 18:29 Antibiotics) Review of Systems Review of Systems: CONSTITUTIONAL: Denies malaise, chills, sweats, or fever. CARDIOVASCULAR: Denies chest pain, palpitations, or edema. RESPIRATORY: Denies cough or dyspnea. GASTROINTESTINAL: Denies abdominal pain, nausea, vomiting, diarrhea GENITOURINARY: Reports dysuria, suprapubic pressure. Denies flank pain or hematuria. SKIN: Denies rash or itching. MUSCULOSKELETAL: Denies back pain or myalgia. All systems reviewed & are unremarkable except as noted in HPI and below PMFSH Past Medical History Medical History Allergies Family History Family History Father Lung cancer Mother Lung cancer Social History Social History Smoking status: Never smoker Alcohol intake: never Substance use: never Living arrangements: with family Spiritual care concerns: No Comments At time of signature, agree with nursing past medical, surgical, social and family history. There is no relevant family history pertinent to the presenting complaint Exam Narrative: GENERAL: Well-appearing, well-nourished, and in no acute distress. HEAD: Normocephalic. EYES: PERRLA, conjunctivae clear. NECK: Supple. No lymphadenopathy CHEST: Clear to auscultation. No respiratory distress. HEART: Regular rate and rhythm. ABDOMEN: Soft, nontender upon palpation, nondistended, no palpable or pulsatile masses, no guarding. No CVA tenderness SKIN: Warm, dry, no rash. NEURO: Alert and oriented x3. PSYCH: Normal mood and affect Course Course Emergency Course: Patient is aware of diagnosis, understands and agrees to treatment plan. Anticipatory guidance given. Patient agrees to follow-up as directed and is aware of reasons to seek care at the emergency department. Portions of this record may have been created with voice recognition software Level of Care: [facility] Visit Vital Signs Vital signs: Vital Signs Temperature 97.8 F 11/11/25 18:40 Pulse Rate 73 11/11/25 18:40 Respiratory Rate 16 11/11/25 18:40 Blood Pressure 106/62 11/11/25 18:40 Pulse Oximetry 98 11/11/25 18:40 Oxygen Delivery Room Air 11/11/25 18:40 Temperature 97.8 F 11/11/25 18:40 Pulse Rate 73 11/11/25 18:40 Respiratory Rate 16 11/11/25 18:40 Blood Pressure 106/62 11/11/25 18:40 Pulse Oximetry 98 11/11/25 18:40 Oxygen Delivery Room Air 11/11/25 18:40 MDM Differential Diagnosis Differential Diagnosis: I evaluated this patient in the [facility]. History is obtained from patient who is an independent historian and physical exam was performed.? Available medical records were reviewed. ? Exam findings and relevant testing show no acute concerns or changes; patient is non-toxic appearing and is in no distress. ? Exam findings and UA show no acute concerns or changes; patient is non-toxic appearing and is in no distress. No CMT, adnexal tenderness, or evidence of pelvic etiology. Differential diagnosis include pyelonephritis, STI, cystitis, urinary tract infection, acute abdomen, gastroenteritis, yeast infection Differential diagnosis and treatment plan were discussed with the patient. Patient agrees with discussion and after shared medical decision making agrees with plan of care. All questions were answered to the patient's satisfaction. Patient is appropriate for outpatient treatment and follow-up. Discharge Plan Discharge Clinical Impression: Urinary tract infection Patient Disposition: Home Condition: Stable Instructions: Antibiotic Form, Urinary Tract Infection in Women (ED) Additional Instructions: We will send a urine culture to the lab; if the culture identifies an organism that the prescribed antibiotic will not treat, you will receive a phone call from an urgent care staff member and an appropriate antibiotic will be prescribed. -Your symptoms should begin to improve within a day of starting antibiotics. But you should finish all the antibiotic pills you get. Otherwise your infection might come back. -Also recommend: increase water intake. Tylenol/ibuprofen as needed for pain or fever -Follow-up with your primary care provider for urine recheck or seek ER visit if condition worsens with high fever, nausea, vomiting and severe back pain. Patient Language: Belarusian Prescriptions: New ciprofloxacin HCl 500 mg tablet 500 mg PO Q12H 5 Days Qty: 10 0RF No Action famotidine 40 mg tablet 40 mg PO QHS Qty: 90 0RF Follow-up/Referrals: Al,Miriam Kuo, ENERGY DERIVATIVES TRADER [Primary Care Provider, Unknown] Time of Disposition: 19:18
[2025-11-11 19:26] LABS: EDUAAPPEAR Cloudy; EDUABILI Negative (Negative); EDUABLOOD 3+ (Negative); EDUACOLOR1 Brown; EDUAGLUCOSE Negative (Negative); EDUAKETONE Negative (Negative); EDUALEUKO 3+ (Negative); EDUANITRATE Positive (Negative); EDUAPH 6.0; EDUAPROTEIN 3+ (Negative); EDUASPGRAVITY 1.025; EDUAUROBILI 0.2
== END 2025-11-11 19:24 | disposition home or self-care (01) ==
PROVIDERS: Emergency Provider Nurse Practitioner
DX: N39.0 Urinary tract infection, site not specified (principal); Z80.1 Family history of malignant neoplasm of trachea, bronchus and lung
CPT/HCPCS: 81003; 87077; 87086; 87186; 99213; G0463